=== PATIENT | female | born 1980 | race Caucasian/White ===

== ENCOUNTER 2016-11-23 17:35 | Inpatient (IN) | payer OTHER ==
--- NOTE | ~2016-11-23 | DS ---
Unit #: [id number] #: [id number] Patient: NAYELI RIVERO [id number] [facility] [address] [place] [address] [id number] MR#: [id number] NAME: NAYELI RIEVRO ROOM: P202 Age: 36 Sex: F Admission Date: 11/23/2016 : 1980 Discharge Date: 11/26/2016 Attending Physician: Roman Ambrosio M.D. Primary Care Physician: Primary Care Physician No DISCHARGE SUMMARY REASON FOR ADMISSION Detox, drug abuse DIAGNOSTIC STUDIES LABORATORY DATA: Urine drug screen positive for benzodiazepine, cocaine, opiates. HOSPITAL COURSE Patient was admitted to inpatient unit on November 23 and discharged on November 26, 2016. Patient was treated on the inpatient unit with group therapy, individual therapy, medication management, chemical dependency group, detox protocol, detox monitoring. Patient responded well to treatment. Subsequently, the patient was discharged with a plan to follow up in outpatient program. DISCHARGE MEDICATIONS 1. Celexa 20 mg daily for depression 2. Remeron 15 mg at bedtime for insomnia 3. 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 CONDITION ON DISCHARGE Patient pleasant, cooperative, denied any psychotic symptom or any suicidal ideation. PROGNOSIS Guarded. DIET AND ACTIVITY As tolerated. Unit #: [id number] #: [id number] Patient: NAYELI RIVERO Dictated by... Michael Walters/nick TD: 11/27/2016 00:09 JOB #: [id number] DISCHARGE SUMMARY Page 1 of 1 X Roman Ambrosio MD X DISCHARGE SUMMARY
--- NOTE | ~2016-11-23 | PA ---
Unit #: [id number] #: [id number] Patient: NAYELI RIVERO [id number] [facility] [address] [place] [address] [id number] MR#: [id number] NAME: NAYELI RIVERO ROOM: P202 Age: 36 Sex: F Admission Date: 11/23/2016 : 1980 Date of Assessment: Attending Physician: Roman Ambrosio M.D. Admitting Physician: Roman Ambrosio M.D. Primary Care Physician: Primary Care Physician No PSYCHIATRIC ASSESSMENT INFORMANT Patient reliability, fair informant; chart reliability, good. CHIEF COMPLAINT Detox from alcohol and drugs and depression. HISTORY OF PRESENT ILLNESS The patient is a 36-year-old female, who presented with the above-mentioned complaint. The patient reported using meth, opiates, history of previous treatment at [facility]. The patient lives with mother, presented due to withdrawal from the alcohol and heroin. The patient reported using both on a daily basis. The patient reported patient scored 21 on COWS Scale. Denied any suicidal or homicidal ideation, but feeling sad, depressed, feeling of hopelessness, reported conflict in the family; , unemployment. The patient denied any psychotic symptom. The patient reported use of tobacco, age of onset 14; alcohol, age of onset 14; marijuana, age of onset 15; crack cocaine, age of onset 36, opiate, age of onset 36; benzodiazepine, age of onset 36, longest period of sobriety 8 years. Last period of sobriety 06/2015. The patient reported history of withdrawal symptom, but denied any use of IV drug use. Withdrawal symptoms such as abdominal cramping, muscle cramping, diaphoresis, irritability, headache, poor appetite, restlessness, needing inpatient admission at this time for psychiatric stabilization. PAST PSYCHIATRIC HISTORY Remarkable for history of previous treatment as mentioned above at [facility] the [facility]. FAMILY HISTORY AND SOCIAL HISTORY The patient has a good support system, but unemployed. No history of abuse. MEDICAL HISTORY Remarkable for asthma. Musculoskeletal, muscle strength and tone, no atrophy or abnormal movement. Gait normal. MEDICATION HISTORY None. ALLERGIES No known drug allergies. Unit #: [id number] #: [id number] Patient: NAYELI RIVERO SUBSTANCE ABUSE HISTORY Please see above. REVIEW OF SYSTEMS HEENT: Eyes, clear. Ears, nose, mouth, and throat; clear. CARDIOVASCULAR: Unremarkable. RESPIRATORY: Unremarkable. GI: Unremarkable. : Unremarkable. SKIN: Unremarkable. LYMPH NODE: Unremarkable. NEUROLOGIC: Unremarkable. ENDOCRINE: Unremarkable. HEMATOLOGIC: Unremarkable. ALLERGIC/IMMUNOLOGIC: Unremarkable. MUSCULOSKELETAL: Muscle strength and tone, no atrophy or abnormal movement. Gait normal. MENTAL STATUS EXAMINATION CONSTITUTIONAL: Measurement of vital signs; temperature 98.6, 96, 20, 127/76. Height 5 feet and 4 inches, weight 110 pounds. GENERAL APPEARANCE: The patient dressed casually. The patient did not show any facial deformity. Musculoskeletal: Please see above. PSYCHIATRIC EXAMINATION Description of speech; regular rate, normal volume, normal articulation, coherent, and spontaneous. Description of thought process, goal directed. Description of association, intact. Description of abnormal psychotic thinking; the patient denied any hallucination or delusions, but depression. Description of the patient's judgment, concerning everyday activity, poor. Social situation, poor. Concerning psychiatric condition, poor. Complete mental status examination; oriented in time, place, and person. Recent and remote memory, fair. Attention span and concentration, fair. Language able to name object and repeat phrases. Fund of knowledge, aware of current event and past history. Vocabulary intact. Mood and affect, sad and dysphoric. Insight and judgment, fair to poor. ASSETS AND LIABILITIES The patient is articulate and able to take care of his ADL. Liability, history of depression and substance abuse. ADMITTING DIAGNOSES Psychiatric: Opioid use disorder, severe, F11.20; alcohol use disorder, severe, F10.20. Mood disorder, not otherwise specified, F32.9. Secondary diagnosis: Deferred. Medical diagnosis: Asthma. Stressors: Psychosocial stressor. PSYCHIATRIC PLAN AND TREATMENT GOAL AND DISCHARGE PLAN 1. Advised to admit the patient on the inpatient unit. Provide safe, supportive, and structured environment. 2. Ordered labs; CBC, CMP, UA, and UDS. 3. Detox protocol and detox monitoring. Unit #: [id number] #: [id number] Patient: NAYELI RIVERO 4. The patient to attend all the programing, group therapy, individual therapy, chemical dependency group. Treatment goal to attain euthymic mood, gain insight into her problem, and learn coping skills. DISCHARGE PLAN Plan to stabilize patient and consider followup in outpatient program. Estimated length of stay is 3 to 5 days. Dictated by... Michael Walters/warren TD: 11/24/2016 16:15 JOB #: [id number] PSYCHIATRIC ASSESSMENT Page 1 of 1 X Roman Ambrosio MD PSYCHIATRIC ASSESSMENT
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
--- NOTE | ~2016-11-23 | PN ---
Unit #: [id number] #: [id number] Patient: NAYELI RIVERO [id number] [facility] [address] [place] [address] [id number] I MR#: [id number] NAME: NAYELI RIVERO ROOM: P202 Age: 36 Sex: F Admission Date: 11/23/2016 : 1980 Attending Physician: Roman Ambrosio M.D. Admitting Physician: Roman Ambrosio M.D. Primary Care Physician: Primary Care Physician Adrianna MARTINEZ NOTES DATE 11/25/2016 DISCUSSION Ms. Steel is a 36-year-old female seen on 11/25/2016. The patient interviewed, chart reviewed. Obtained information from nursing staff. The patient compliant and cooperative. Mood sad, dysphoric. The patient's vital signs 97.6, 54, 94/68. The patient tolerating medication fairly well. Currently on combination of Desyrel, Celexa, vistaril. No side effects from medication. Complete review of systems unremarkable. MENTAL STATUS EXAMINATION General appearance, the patient dressed casually. Attention span and concentration fair. Oriented to time, place and person. Mood and affect sad, depressed. Speech monotone. Thought process concrete. The patient denied any thoughts of harming self or others but guarded. Recent and remote memory poor. Insight and judgement poor. DIAGNOSES 1. Major depressive disorder recurrent. 2. Alcohol disorder moderate. 3. Opioid use disorder severe. MEDICAL DIAGNOSIS Asthma. ASSESSMENT/PLAN Advise to continue with current medication and therapeutic protocol. If needed consider further adjustment of medication. Dictated by... Michael Walters/genoveva TD: 11/26/2016 00:38 JOB #: [id number] Unit #: [id number] #: [id number] Patient: NAYELI RIVERO TALA PROGRESS NOTES Page 1 of 1 X Roman Ambrosio MD PROGRESS NOTE
[2016-11-24 09:59] LABS: BASOPHIL# 0.1 X10e3 (0-0.3); BASOPHIL% 0.9 % (0-2.5); EOSINOPHIL# 0.1 X10e3 (0-0.7); EOSINOPHIL% 0.9 % (0.0-7.0); HEMATOCRIT 48.7 % (35.0-45.0); LYMPHOCYTE# 1.3 X10e3 (1.0-3.5); LYMPHOCYTE% 17.2 % (17.0-45.0); MEAN CELL VOLUME 94.7 FL (83-96); MEAN CORPUSCULAR HEMOGLOBIN 31.1 PG (28-34); MEAN CORPUSCULAR HGB CONC 32.9 g/dL (30-36); MEAN PLATELET VOLUME 8.2 FL (6.5-11.5); MONOCYTE% 12.2 % (3.0-12.0); NEUTROPHIL# 5.4 X10e3 (1.5-7.1); NEUTROPHIL% 68.8 % (40-75); PLATELET COUNT 290 X10e3 (140-420); RED BLOOD COUNT 5.15 X10e (3.90-5.30); WHITE BLOOD COUNT 7.8 X10e3 (4.0-10.5)
[2016-11-24 10:02] LABS: DIFF IND NO
[2016-11-24 10:08] LABS: BILIRUBIN,TOTAL 2.8 mg/dL (0.2-2.0); CALCIUM SERUM 9.5 mg/dL (8.4-10.2); CREATININE SERUM 0.7 mg/dL (0.6-1.4); GLOM FILT RATE Estimated 111.5 mL/min (>60); POTASSIUM 3.7 mmol/L (3.5-5.1); PROTEIN TOTAL SERUM 7.4 g/dL (6.0-8.3)
[2016-11-24 10:49] LABS: AMPHETAMINE NEG (NEG); BARBITURATES NEG (NEG); BENZODIAZEPINES POS (NEG); COCAINE POS (NEG); MARIJUANA NEG (NEG); OPIATES POS (NEG); TRICYCLIC ANTIDEPRESSANTS NEG (NEG); U METHADONE NEG (NEG)
[2016-11-24 10:58] LABS: URINE APPEARANCE CLOUDY; URINE BLOOD 2+ (NEG); URINE COLOR YELLOW; URINE GLUCOSE NORM (NORM); URINE KETONE 2+ (NEG); URINE LEUKOCYTE ESTERASE NEG (NEG); URINE NITRATE NEG (NEG); URINE PROTEIN 1+ (NEG); URINE SPECIFIC GRAVITY 1.025 (1.003-1.035); URINE UROBILINOGEN NORM (NORM)
[2016-11-24 11:08] LABS: URINE BILIRUBIN NEG (NEG)
[2016-11-24 11:24] LABS: URINE AMORPHOUS SEDIMENT AMORP URATES; URINE CRYSTALS CALCIUM OXALATE /[HPF]
[2016-11-24 11:25] LABS: URINE SQUAMOUS EPITHELIAL CELL OCCAS /[HPF]
[2016-11-24 11:28] LABS: URINE BACTERIA AUWI 2+ (NEGATIVE); UWBCS1 AUWI 0-2 (0-5)
== END 2016-11-26 09:50 | disposition home or self-care (01) | DRG 897 ==
LOC: P2S 19:22
PROVIDERS: Psychiatry & Neurology Psychiatry
PROC: HZ2ZZZZ Detoxification Services for Substance Abuse Treatment (ICD-10-PCS; principal; 2016-11-23)
DX: F11.20 Opioid dependence, uncomplicated (principal); F33.9 Major depressive disorder, recurrent, unspecified; F13.20 Sedative, hypnotic or anxiolytic dependence, uncomplicated; F15.20 Other stimulant dependence, uncomplicated; F10.20 Alcohol dependence, uncomplicated; F39 Unspecified mood [affective] disorder; J45.909 Unspecified asthma, uncomplicated; Z90.710 Acquired absence of both cervix and uterus; F17.210 Nicotine dependence, cigarettes, uncomplicated
CPT/HCPCS: 80053; 80307; 81003; 84703; 85025